=== PATIENT | male | born 1980 | race Caucasian/White ===

== ENCOUNTER 2020-10-27 11:31 | Emergency (ER) | payer OTHER ==
[2020-10-27] MEDS ORDERED: Ketorolac Tromethamine 60 MG/2 ML VIAL ONE (12:29)
[2020-10-27] MEDS ORDERED: Dexamethasone 4 MG TAB ONE (12:29)
== END 2020-10-27 12:57 | disposition home or self-care (01) ==
LOC: MADERS 11:31
DX: S83.91XA Sprain of unspecified site of right knee, initial encounter (principal); S86.911A Strain of unspecified muscle(s) and tendon(s) at lower leg level, right leg, initial encounter; F17.200 Nicotine dependence, unspecified, uncomplicated; X50.1XXA Overexertion from prolonged static or awkward postures, initial encounter
CPT/HCPCS: 96372; 99283; J1885; J8540

== ENCOUNTER 2020-11-14 13:06 | Emergency (ER) | payer OTHER ==
[2020-11-14] MEDS ORDERED: Sodium Chloride 0.9% 1,000 ML ONE (13:49)
[2020-11-14] MEDS ORDERED: Ketorolac Tromethamine 30 MG/ML VIAL ONE (13:49)
[2020-11-14] MEDS ORDERED: Ondansetron PF 4 MG/2 ML Vial ONE (13:49)
[2020-11-14 14:01] LABS: #Basophils 0.1 thou/uL (0.0-0.2); #Eosinphils 0.2 thou/uL (0.0-0.7); #Lymphocytes 2.6 thou/uL (1.20-3.40); #Monocytes 0.4 thou/uL (0.11-0.59); #Neutrophils 6.5 thou/uL (1.40-6.50); %Basophils 0.8 % (0.0-1.0); %Eosinophils 1.9 % (0.0-10.0); %Monocytes 3.7 % (0.0-10.0); %Neutrophils 66.6 % (42.0-75.0); Hemoglobin 16.8 g/dL (14.0-18.0); Mean Corpuscular HGB CONC 32.2 g/dL (32.0-36.0); Mean Corpuscular Hemoglobin 31.8 pg (27.0-31.0); Mean Corpuscular Volume 98.7 fL (78.0-98.0); Platelet Count 259 thou/uL (130-400); RBC Distribution Width 11.9 % (11.5-14.5); White Blood Cell (WBC) Count 9.8 thou/uL (4.8-10.8)
[2020-11-14 14:19] LABS: ALT (SGPT) 21 U/L (8-55); AST (SGOT) 19 U/L (5-34); Albumin 4.5 g/dL (3.5-5.0); Alkaline Phosphatase 59 U/L (40-110); Anion Gap 13 mmol/L (10-20); BUN (Urea Nitrogen) 8 mg/dL (8.9-20.6); Bilirubin, Total 0.3 mg/dL (0.2-1.2); Calc. Creatinine Clearance 0 mL/min (70-130); Calcium 9.5 mg/dL (7.8-10.44); Carbon Dioxide 25 mmol/L (22-29); Chloride 109 mmol/L (98-107); Globulin 2.4 g/dL (2.4-3.5); Glucose 95 mg/dL (70-105); Lipase 21 U/L (8-78); Potassium 4.4 mmol/L (3.5-5.1); Protein, Total 6.9 g/dL (6.0-8.3); Sodium 143 mmol/L (136-145)
== END 2020-11-14 14:50 | disposition home or self-care (01) ==
LOC: MADERS 13:06
DX: R11.2 Nausea with vomiting, unspecified (principal); F17.200 Nicotine dependence, unspecified, uncomplicated
CPT/HCPCS: 80053; 83690; 85025; 96374; 96375; J1885; J2405; J7050

== ENCOUNTER 2021-09-12 12:16 | Emergency (ER) | payer OTHER ==
[2021-09-12] MEDS ORDERED: Ondansetron ODT 4 MG TAB ONE (12:58)
== END 2021-09-12 13:10 | disposition home or self-care (01) ==
LOC: MADERS 12:16
DX: H83.09 Labyrinthitis, unspecified ear (principal); K52.9 Noninfective gastroenteritis and colitis, unspecified; F17.210 Nicotine dependence, cigarettes, uncomplicated
CPT/HCPCS: 99283; Q0162

== ENCOUNTER 2021-12-20 07:26 | Emergency (ER) | payer SELFPAY ==
[2021-12-20] MEDS ORDERED: Tetracaine 0.5% PF 4 ML BOT ONE (08:01)
[2021-12-20] MEDS ORDERED: Fluorescein Opthalmic Strip ONE (08:01)
== END 2021-12-20 08:42 | disposition home or self-care (01) ==
LOC: MADERS 07:26
DX: H16.133 Photokeratitis, bilateral (principal); F17.210 Nicotine dependence, cigarettes, uncomplicated
CPT/HCPCS: 99282

== ENCOUNTER 2024-02-24 09:05 | Emergency (ER) | payer SELFPAY | END 2024-02-24 10:48 | disposition home or self-care (01) | LOC: MADERS 09:05 | DX: M79.672 Pain in left foot (principal); F17.220 Nicotine dependence, chewing tobacco, uncomplicated ==

== ENCOUNTER 2024-05-31 07:05 | Emergency (ER) | payer OTHER | END 2024-05-31 07:38 | disposition home or self-care (01) | LOC: MADERS 07:05 | DX: K08.89 Other specified disorders of teeth and supporting structures (principal); F17.220 Nicotine dependence, chewing tobacco, uncomplicated | CPT/HCPCS: 99282 ==

== ENCOUNTER 2024-06-07 11:12 | Emergency (ER) | payer OTHER ==
[2024-06-07] MEDS ORDERED: Ibuprofen 800 MG TAB ONE (11:34)
[2024-06-07] MEDS ORDERED: Penicillin V Potassium 250 MG TAB ONE (11:34)
== END 2024-06-07 11:53 | disposition home or self-care (01) ==
LOC: MADERS 11:12
DX: K08.89 Other specified disorders of teeth and supporting structures (principal); F17.220 Nicotine dependence, chewing tobacco, uncomplicated; F17.290 Nicotine dependence, other tobacco product, uncomplicated
CPT/HCPCS: 99282

== ENCOUNTER 2024-07-11 10:04 | Emergency (ER) | payer OTHER ==
[2024-07-11] MEDS ORDERED: Bupivacaine PF 0.5% 30 ML VIAL ONE (10:28)
== END 2024-07-11 10:43 | disposition home or self-care (01) ==
LOC: MADERS 10:04
DX: K02.9 Dental caries, unspecified (principal); F17.220 Nicotine dependence, chewing tobacco, uncomplicated; F17.290 Nicotine dependence, other tobacco product, uncomplicated
CPT/HCPCS: 99282; J0665

== ENCOUNTER 2024-07-22 08:21 | Emergency (ER) | payer OTHER | END 2024-07-22 08:56 | disposition home or self-care (01) | LOC: MADERS 08:21 | DX: K08.89 Other specified disorders of teeth and supporting structures (principal); F17.290 Nicotine dependence, other tobacco product, uncomplicated | CPT/HCPCS: 99282 ==

== ENCOUNTER 2024-11-11 10:56 | Emergency (ER) | payer SELFPAY | END 2024-11-11 11:38 | disposition home or self-care (01) | LOC: MADERS 10:56 | DX: K04.7 Periapical abscess without sinus (principal); K02.9 Dental caries, unspecified; F17.220 Nicotine dependence, chewing tobacco, uncomplicated | CPT/HCPCS: 99282 ==